=== PATIENT | female | born 1990 | race Caucasian/White ===

== ENCOUNTER 2016-06-29 10:48 | Emergency (ER) | payer MEDICAID, OTHER ==
[~2016-06-29] VITALS: Wt 76.0 kg
[~2016-06-29 10:48] MED LIST: ALBU8.5H3 IH
[2016-06-29] MEDS ORDERED: ONDANSETRON 4 MG INJ IV STA (12:11)
[2016-06-29] MEDS ORDERED: ACETAMINOPHEN 325 MG TAB PO STA (12:11)
[2016-06-29] MEDS ORDERED: SOD CHLORIDE 0.9% 1,000 ML IV STA (12:11)
--- NOTE | 2016-06-29 12:20 | ERD ---
ER Documentation Chief Complaint Date/Time DATE: 06/29/16 TIME: 12:13 Chief Complaint PELVIC PAIN WITH D/C SINCE LAST NIGHT 15 WEEKS PREG HPI 26-year-old otherwise healthy female with a history of 3 prior vaginal deliveries presents to the emergency department complaining of pelvic pain since last night. Patient states she is 15 weeks and has experienced an uneventful thus far. Patient denies any heavy bleeding but notes some mild spotting as well as clear discharge last night. Patient states she is currently a 9 out of 10 pain described as cramping located mid lower abdominal region as well as bilateral low back pain. Patient states she is currently nauseous but denies any vomiting or diarrhea. Patient denies any alleviating pain factors and states she has not attempted to treat the pain with any medication. ROS All systems reviewed and are negative except as per history of present illness. Medications Home Meds Reported Medications Albuterol Sulfate* (Proair HFA*) 8.5 Gm Hfa.aer.ad, 8.5 GM IH 01/16/11 Allergies Allergies: Coded Allergies: Cephalexin (Verified Allergy, Intermediate, 12/25/11) RASH PMhx/Soc History of Surgery: No Anesthesia Reaction: No Hx Neurological Disorder: No Hx Respiratory Disorders: Yes (ASTHMA ) Hx Cardiac Disorders: No Hx Psychiatric Problems: No Hx Miscellaneous Medical Probl: No Hx Alcohol Use: No Hx Substance Use: No Hx Tobacco Use: No Physical Exam Vitals Vital Signs Date Time Temp Pulse Resp B/P Pulse Ox O2 Delivery O2 Flow Rate FiO2 06/29/16 10:54 98.0 96 18 130/79 99 Physical Exam Const: Well-developed, nontoxic-appearing, well-hydrated, in moderate distress Head: Atraumatic Eyes: Normal Conjunctiva ENT: Normal External Ears, Nose and Mouth. Neck: Full range of motion..~ No meningismus. Resp: Clear to auscultation bilaterally Cardio: Regular rate and rhythm, no murmurs Abd: Soft, tenderness to palpation near suprapubic region. Negative Davies sign, negative McBurney's point tenderness, no peritoneal signs.non distended. Normal bowel sounds Skin: No petechiae or rashes Back: Mild flank tenderness bilaterally, no midline tenderness Ext: No cyanosis, or edema Neur: Awake and alert Psych: Normal Mood and Affect Result Diagram: 06/29/16 1239 06/29/16 1239 Results 24 hrs Laboratory Tests Test 06/29/16 12:39 Anion Gap 15 Basophils # 0.010^3/ul Basophils % 0.1% Blood Urea Nitrogen 9mg/dl Calcium Level 9.4mg/dl Carbon Dioxide Level 26mmol/L Chloride Level 104mmol/L Creatinine 0.55mg/dl Eosinophils # 0.010^3/ul Eosinophils % 0.3% Glucose Level 75mg/dl Hematocrit 38.8% Hemoglobin 13.3g/dl Lymphocytes # 1.410^3/ul Lymphocytes % 18.0% Mean Corpuscular Hemoglobin 29.4pg Mean Corpuscular Hemoglobin Concent 34.4g/dl Mean Corpuscular Volume 85.6fl Mean Platelet Volume 8.9fl Monocytes # 0.510^3/ul Monocytes % 6.5% Neutrophils # 5.810^3/ul Neutrophils % 75.1% Nucleated Red Blood Cells # 0.010^3/ul Nucleated Red Blood Cells % 0.0/100WBC Platelet Count 24583^3/UL Potassium Level 3.7mmol/L Red Blood Count 4.5410^6/ul Red Cell Distribution Width 12.5% Sodium Level 141mmol/L Urine Bilirubin NEGATIVE Urine Clarity SLIGHTLY CLOUDY Urine Color LT. YELLOW Urine Glucose NEGATIVE% Urine Hemoglobin NEGATIVE Urine Ketones NEGATIVE Urine Leukocyte Esterase NEGATIVE Urine Microscopic RBC Pending Urine Microscopic WBC Pending Urine Nitrite NEGATIVE Urine Specific [place] 1.010 Urine Total Protein TRACE Urine Urobilinogen 1.0 E.U./dL Urine pH 8.5 White Blood Count 7.810^3/ul Current Medications Medications (Trade) Dose Ordered Sig/Cristel Route PRN Reason Start Time Stop Time Status Last Admin Dose Admin Sodium Chloride (NS) 1,000 ml @ 1,000 mls/hr Q1H STAT IV 06/29/16 12:11 06/29/16 13:10 DC 06/29/16 12:39 Acetaminophen (Tylenol Tab) 650 mg ONCE STAT PO 06/29/16 12:11 06/29/16 12:14 DC 06/29/16 12:39 Ondansetron HCl (Zofran Inj) 4 mg ONCE STAT IV 06/29/16 12:11 06/29/16 12:14 DC 06/29/16 12:38 Procedures/MDM Radiology: PROCEDURE: OB Ultrasound. CLINICAL INDICATION: Positive test. Vaginal bleeding. TECHNIQUE: Ultrasound of the pelvis was performed with transabdominal and transvaginal sonography in the axial and sagittal planes. COMPARISON: No prior study is available for comparison. FINDINGS: There is a single intrauterine gestational sac. pole and yolk sac are present. There is no heart motion. [place]-rump length is 5.89 cm. Mean sac diameter is 6.35 cm. Menstrual age by ultrasound dates is 12 weeks 3 days. The ovaries are not visualized. There is no other pelvic mass or free fluid. IMPRESSION: 1. demise at 12 weeks 3 days menstrual age by ultrasound dates. RPTAT: QQ .Eugene Valdes MD, Date Time Electronically viewed and signed by .Eugene Valdes MD, MD on 06/29/2016 13:21 .R/ CC: TRISTEN MACEDO PA-C 26-year-old female history of 3 prior vaginal deliveries presents to the ED emergency department complaining of pelvic pain and nausea since last night. CBC showed no evidence of systemic infection or severe anemia. CMP showed no evidence of electrolyte abnormalities, severe acidosis, alkalosis , renal failure, or liver disease. UA showed no evidence of acute infection or hematuria. Patient received Zofran and Tylenol Patient given 1 L bolus fluids Diagnostic imaging revealed demise at 12 weeks 3 days menstrual age by ultrasound date. Patient likely to abort spontaneously as she is experiencing contractions currently. Patient to follow-up with [facility] in 1-2 days for possible D&C. Patient provided [place] for pain control. Based on patient's history of present illness and physical examination the decision was made to discharge. The patient was re-evaluated after ED treatment and stabilizing measures, and symptoms have improved. There is no evidence of life threatening injuries or illnesses at this time. On re-examination, patient resting in no distress, stable vital signs, reports feeling better and safe for discharge with outpatient follow up with PMD in 1-2 days. Patient given return precautions. TRISTEN MACEDO PA-C Jun 29, 2016 12:20
[2016-06-29 13:02] LABS: BASOPHILS % 0.1 % (0.0-2.0); EOSINOPHILS % 0.3 % (0.0-7.0); HEMATOCRIT 38.8 % (37.0-47.0); HEMOGLOBIN 13.3 g/dl (12.0-16.0); LYMPHOCYTES # 1.4 10^3/ul (0.8-2.9); MEAN CORPUSCULAR HEMOGLOBIN 29.4 pg (29.0-33.0); MEAN CORPUSCULAR HGB CONC 34.4 g/dl (32.0-37.0); MEAN CORPUSCULAR VOLUME 85.6 fl (82.0-101.0); MEAN PLATELET VOLUME 8.9 fl (7.4-10.4); MONOCYTE # 0.5 10^3/ul (0.3-0.9); MONOCYTES % 6.5 % (0.0-11.0); NEUTROPHIL # 5.8 10^3/ul (1.6-7.5); NEUTROPHILS % 75.1 % (39.0-77.0); PLATELET COUNT 246 10^3/UL (140-440); RED BLOOD COUNT 4.54 10^6/ul (4.20-5.40); RED CELL DISTRIBUTION WIDTH 12.5 % (11.5-14.5); UNCORRECTED WBC 7.8 10^3/ul (4.8-10.8); WHITE BLOOD COUNT 7.8 10^3/ul (4.8-10.8)
[2016-06-29 13:05] LABS: CONDITION 1
[2016-06-29 13:10] LABS: POTASSIUM 3.7 mmol/L (3.5-5.1)
[2016-06-29 13:12] LABS: CREATININE 0.55 mg/dl (0.44-1.00)
[2016-06-29 13:13] LABS: CALCIUM 9.4 mg/dl (8.4-10.2)
[2016-06-29 13:16] LABS: ADD UMIC YES; URINE BILIRUBIN (Dip) NEGATIVE (NEGATIVE); URINE BLOOD (Dip) NEGATIVE (NEGATIVE); URINE COLOR LT. YELLOW (YELLOW); URINE GLUCOSE (Dip) NEGATIVE (NEGATIVE); URINE KETONES (Dip) NEGATIVE (NEGATIVE); URINE LEUKOCYTE ESTERASE (Dip) NEGATIVE (NEGATIVE); URINE NITRITE (Dip) NEGATIVE (NEGATIVE); URINE TOTAL PROTEIN (Dip) TRACE (NEGATIVE); URINE UROBILINOGEN (Dip) 1.0 E.U./dL (0.1-1.0)
--- NOTE | 2016-06-29 13:21 | RADRPT ---
PROCEDURE: OB Ultrasound. CLINICAL INDICATION: Positive test. Vaginal bleeding. TECHNIQUE: Ultrasound of the pelvis was performed with transabdominal and transvaginal sonography in the axial and sagittal planes. COMPARISON: No prior study is available for comparison. FINDINGS: There is a single intrauterine gestational sac. pole and yolk sac are present. There is no heart motion. [place]-rump length is 5.89 cm. Mean sac diameter is 6.35 cm. Menstrual age by ultrasound dates is 12 weeks 3 days. The ovaries are not visualized. There is no other pelvic mass or free fluid. IMPRESSION: 1. demise at 12 weeks 3 days menstrual age by ultrasound dates. RPTAT: QQ .Eugene Valdes MD, Date Time Electronically viewed and signed by .Eugene Valdes MD, on 06/29/2016 13:21 .R/
[2016-06-29] MEDS ORDERED: IBUP-1542 PO (13:39)
[2016-06-29] MEDS ORDERED: HYDR-902 PO (13:39)
[2016-06-29] MEDS ORDERED: KETOROLAC 30 MG INJ IM STA (13:49)
[2016-06-29 13:59] LABS: URINE RBCS NONE SEEN /HPF (0)
[2016-06-29 14:00] LABS: BACTERIA,URINE FEW
== END 2016-06-29 14:02 | disposition home or self-care (01) ==
LOC: FTE 10:48
DX: O26.891 Other specified pregnancy related conditions, first trimester (principal); R10.2 Pelvic and perineal pain; O26.851 Spotting complicating pregnancy, first trimester; O99.511 Diseases of the respiratory system complicating pregnancy, first trimester; J45.909 Unspecified asthma, uncomplicated; Z3A.12 12 weeks gestation of pregnancy
CPT/HCPCS: 76801; 80048; 81001; 81003; 84702; 85025; 86900; 86901; 87086; J1885; J2405; J7030; Z7610; 36415; 96372; 96374

== ENCOUNTER 2017-11-22 15:54 | Emergency (ER) | END 2017-11-22 17:13 | disposition home or self-care (01) ==